=== PATIENT | male | born 1980 | race African-American/Black ===

== ENCOUNTER 2020-05-01 11:57 | Emergency (ER) | payer BC, OTHER ==
--- OUTSIDE RECORDS SUMMARY | 2020-05-01 12:01 | XMS REPORT | Continuity of Care Document ---
:1980 Author Organization [facility] t Address [address] [place] [address] Care Team Providers Name Role Phone William Brizuela Attending Clinician Katie BENTON Attending Clinician Payers Payer Name Policy Type Policy Number Effective Date Expiration Date S ource Problems Condition Condition Condition Status Onset Resolution Last Treating Co mments Source Name Details Category Date Date Treatment Clinician Date Benign Benign Problem Active [facility] essential essential Luke s - hypertensi hypertensi Me moria on on l [facility] ent Clinics Iron Iron Problem Active [facility] deficiency deficiency Sangeetha kes - Memoria l [facility] Clinics BMI BMI Problem Active [facility] 45.0-49.9, 45.0-49.9, Sangeetha sanchezs - adult adult Memoria [facility] ent Clinics Body mass Body mass Problem Active [facility] index index [facility] - (BMI) of (BMI) of Memori a 40.1 to 40.1 to l 44.9 in 44.9 in [facility] adult adult ent Clinics Vitamin D Vitamin D Problem Active [facility] deficiency deficiency Sangeetha kes - Memoria l [facility]ics Fatigue, Fatigue, Problem Active [facility] unspecifie unspecifie Sangeetha kes - d type d type Memoria l [facility] Clinics Tendonitis Tendonitis Problem Active [facility] - [facility] l [facility] Prediabete Prediabete Problem Active [facility] s [facility] - Memoria l [facility] ent [facility] Elbow pain Elbow pain Problem Active [facility] - Mem[facility] l [facility] Generalize Generalize Diagnosis Active [facility] d body d body Lukes - aches aches Memoria [facility] ent [facility] Fever and Fever and Diagnosis Active [facility] chills chills [facility]ukes - Memoria l [facility] ent [facility] Suspected Suspected Diagnosis Active [facility] COVID-19 COVID-19 Lukes - virus virus Memoria infection infection l [facility] ent [facility] Allergies, Adverse Reactions, Alerts Allergy Allergy Status Severity Reaction(s) Onset Inactive Treating Comm ents Source Name Type Date Date Clinician No Known DA Active U 2018-09 [facility] Allergie 0-01 Clear s 00:00: [place] 00 [facility] Medications Ordered Filled Start Stop Current Ordering Indication Dosage Frequency Signature Comments Components Source Medication Medication Date Date Medication? Clinician (SIG) Name Name Lisinopril- Lisinopril- Yes Eliel [address] [facility] Hydrochloro Hydrochloro Rivera [facility] - thiazide thiazide Memoria [facility] ent [facility] Phentermine Phentermine Yes Eliel [address] [facility] HCl HCl Rivera [facility] - Memoria l [facility] Cyanocobala Cyanocobala Yes Eliel [address] [facility] min min Rivera [facility] - Memoria l [facility] Duexis Duexis Yes Eliel 1 tablet [facility] Rivera [facility] - Mem[facility] Syringe Syringe Yes Eliel as [facility] Rivera directed Lukes - Memoria [facility] ent [facility] Immunizations Ordered Filled Immunization Date Status Comments Sour e Immunization Name Name TDAP > 7 TDAP > 7 2019-01-[address] [facility] - Years-Adacel Years-Adacel 00:00:00 [facility] Afluria Afluria 2019-01-[address] [facility] - 00[facility] Procedures This patient has no known procedures. Encounters Start End Encounter Admission Attending Care Care Encounter Source Date/Time Date/Time Type Type Clinicians Facility Department ID 2020-04-30 2020-04-30 Emergency Marietta Bailey [facility] [id number] 20:49:00 23:23:00 Nito Wilson [id number] [place] [id number] [place] [address] [id number] 2020-04-30 2020-04-30 [facility] [id number] [facility] 15:00:00 15:00:00 t [employer] [facility] Medicine Outpati ent Clinics 2020-04-26 2020-04-26 [facility] [id number] 09:41:00 09:41:00 t [facility] - [employer] [facility] Medicine Outpati ent Clinics 2020-04-26 2020-04-26 [facility] [id number] 08:15:00 08:15:00 t [employer] [facility] Medicine l Medicine Outpati ent Clinics 2020-03-29 2020-03-29 [facility] [id number] [address] 08:15:00 08:15:00 t [employer] [facility] Medicine Outpati ent Clinics 2020-03-15 2020-03-15 [facility] [id number] 13:30:00 13:30:00 t [employer] [facility] Medicine l Medicine Outpati ent Clinics 2019-12-22 2019-12-22 [facility] [id number] 16:58:00 16:58:00 t [employer] [facility] Medicine Outpati ent Clinics 2019-03-11 2019-03-11 [facility] [id number] 08:00:00 08:00:00 t Ray [employer] s - [employer] [facility] Medicine Outpati ent Clinics 2019-01-07 2019-01-07 [facility] [id number] 08:15:00 08:15:00 t [employer] - [facility] Medicine Outpati ent Clinics 2018-10-06 2018-10-06 [facility] [id number] 14:49:00 14:49:00 t [facility] [employer] - [employer] [facility] Medicine Outpati ent Clinics 2018-06-09 2018-06-09 [facility] [id number] [address] 10:21:00 10:21:00 t Ray [employer] s - [employer] [facility] Medicine Outpati ent Clinics 2018-06-08 2018-06-08 [facility] [id number] 15:45:00 15:45:00 t Ray [employer] [facility] Medicine Outpati ent Clinics 2018-05-20 2018-05-20 [facility] [id number] 08:08:00 08:08:00 t Ray [employer] [facility] Medicine Outpati ent Clinics 2018-05-13 2018-05-13 [facility] [id number] 08:15:00 08:15:00 t Ray [employer] [facility] Medicine Outpati ent Clinics 2018-05-04 2018-05-04 [facility] [id number] 07:52:00 07:52:00 t [employer] [facility] Medicine Outpati ent Clinics 2018-04-12 2018-04-12 [facility] [id number] 08:30:00 08:30:00 t [employer] [facility] Medicine Outpati ent Clinics 2018-02-19 2018-02-19 [facility] [id number] 08:30:00 08:30:00 t [employer] [facility] Medicine Outpati ent Clinics 2018-01-29 2018-01-29 [facility] [id number] 08:45:00 08:45:00 t [employer] [facility] Medicine Outpati ent Clinics Results Test Description Test Time Test Comments Results Result Comments Source CHEMISTRY 8 PROFILE 2019-06-14 17:43:00 Test Item Value Reference Range Interpretation Comme nts ISTAT-SODIUM (test code = NAP) MMOL/L 134-147 ISTAT-POTASSIUM (test code = KP) MMOL/L 3.4-5.0 ISTAT-CHLORIDE (test code = CLP) MMOL/L 100-108 ISTAT CARBON DIOXIDE (test code = ISTAT-CO2) mmol/L 21-33 N ISTAT CALCIUM IONIZED (test code = ISTAT-SHELLY) MG/DL 1.12-1.3 2 ISTAT-GLUCOSE (test code = GLUP) MG/DL 70-110 N ISTAT-BUN (test code = BUNP) MG/DL 7-18 H BEDSIDE CREATININE (test code = CREATBED) MG/DL 0.6-1.3 N GLOMERULAR FILTRATION RATE POC (test code = GFRBED) 65 ML/MIN CHEMISTRY 8 [id number] 17:43:00 Test Item Value Reference Range Interpretation Comments ISTAT-SODIUM (test 140 MMOL/L 134-147 N code = NAP) ISTAT-POTASSIUM (test 4.2 MMOL/L 3.4-5.0 N code = KP) ISTAT-CHLORIDE (test 105 MMOL/L 100-108 N Perform ed by code = CLP) certified opera tor at [facility] ISTAT CARBON DIOXIDE 25.0 mmol/L 21-33 N (test code = ISTAT-CO2) ISTAT CALCIUM IONIZED 1.16 MG/DL 1.12-1.32 N (test code = ISTAT-SHELLY) ISTAT-GLUCOSE (test 74 MG/DL 70-110 N code = GLUP) ISTAT-BUN (test code = 19 MG/DL 7-18 H BUNP) BEDSIDE CREATININE 1.3 MG/DL 0.6-1.3 N (test code = CREATBED) GLOMERULAR FILTRATION 65 ML/MIN RATE POC (test code = GFRBED)
--- OUTSIDE RECORDS SUMMARY | 2020-05-01 12:01 | XMS REPORT ---
:1980 Author Organization eClinicalWorks Care Team Providers Name Role Phone RiveraEliel Provider Role Unavailable Allergies No Known Allergies Problems Problem Type Condition Code Onset Dates Condition Statu s Problem Iron deficiency E61.1 Active Problem BMI 45.0-49.9, adult Z68.42 Active Assessment Benign essential hypertension I10 Active Problem Body mass index (BMI) of 40.1 to Z68.41 Active 44.9 in adult Problem Vitamin D deficiency E55.9 Active Problem Fatigue, unspecified type R53.83 Ac tive Problem Tendonitis M77.9 Active Problem Benign essential hypertension I10 Active Problem Prediabetes R73.09 Active Problem Elbow pain M25.529 Active Medications Medication Code Code Instructions Start End Date Status Dosage System Date Lisinopril-Hyd [facility] 08255165602 20-12.5 MG Active 1 tablet rochlorothiazi Orally Once a de day Results No Known Results Summary Purpose eClinicalWorks Submission
--- OUTSIDE RECORDS SUMMARY | 2020-05-01 12:01 | XMS REPORT ---
:1980 Author Organization eClinical[employer] Care Team Providers Name Role Phone Eliel Rivera Provider Role Unavailable Allergies, Adverse Reactions, Alerts Substance Reaction Event Type N.K.D.A. Info Not Available Non Drug Allergy Problems Problem Type Condition Code Onset Dates Condition Statu s Problem Iron deficiency E61.1 Active Problem BMI 45.0-49.9, adult Z68.42 Active Problem Body mass index (BMI) of 40.1 to Z68.41 Active 44.9 in adult Problem Vitamin D deficiency E55.9 Active Problem Fatigue, unspecified type R53.83 Ac tive Problem Tendonitis M77.9 Active Problem Benign essential hypertension I10 Active Problem Prediabetes R73.09 Active Problem Elbow pain M25.529 Active Assessment Vitamin B12 deficiency E53.8 Activ e Assessment Dietary counseling and surveillance Z71.3 Active Assessment Prediabetes R73.09 Active Assessment Fatigue, unspecified type R53.83 Ac tive Assessment Iron deficiency E61.1 Active Assessment Body mass index (BMI) of 40.1 to Z68.41 Active 44.9 in adult Assessment Vitamin D deficiency E55.9 Active Assessment Benign essential hypertension I10 Active Medications Medication Code Code Instructions Start End Status Dosage System Date Date Duexis [facility] 62485854672 800-26.6 MG Active 1 tablet Orally Three times a day PRN Cyanocobalamin [facility] 19961548619 1000 MCG/ML Active 1 ml Intramuscular Injection every 2 weeks Syringe [facility] 01189099321 25G X 1 IM to be Active as used for B12 directed injections Lisinopril-Hydroc [facility] 97187318031 20-12.5 MG Active TAKE 1 hlorothiazide Orally Once a TABL ET BY day MOUTH EVERY DAY Phentermine HCl ND 76930173043 37.5 MG Orally Aug Activ e 1 capsule Once a day 2019 Results No Known Results Summary Purpose eClinicalWorks Submission
--- OUTSIDE RECORDS SUMMARY | 2020-05-01 12:01 | XMS REPORT | Summary of Care ---
:1980 Author Organization [facility] Address [address] [place] [address] Care Team Providers Name Role Phone Pcp, Does Not Have A Primary Care Provider Reason for Visit Reason Comments Other COVID testing Auth/Cert Status Reason Specialty Diagnoses / Referred By Referred To Procedures Contact Contact Emergency Medicine [facility] Em ergency Dept [address] [place] [address] Fax: Encounter Details Date Type Department Care Team Description 04/30/2020 Emergency ADC-Emergency Marietta Vázquez, PAC [address] [place], [place] [id number] Nonintractable headache, unspecified chr onicity pattern, unspecified headache type (Primary Dx); Department Nito Wilson, ASSOCIATE PROGRAMMER[address] [address] Fever, unspecified fever cause [address] [place], [place] [id number] Allergies No Known Allergiesdocumented as of this encounter (statuses as of 04/30/2020) Medications Medication Sig Dispensed Refills Start Date End Date Status LISINOPRIL ORAL Take by mouth. 0 Active butalbital-acetaminophen Take 1 tablet by 20 tablet 0 04/30/20 20 Active -caff 50-325-40 mg mouth every 4 tabletIndications: (four) hours as Nonintractable headache, needed for Pain unspecified chronicity (scale 4-6). pattern, unspecified headache type documented as of this encounter (statuses as of 04/30/2020) Active Problems No known active problemsdocumented as of this encounter (statuses as of 04/30/2020) Social History Tobacco Use Types Packs/Day Years Used Date Never Assessed Sex Assigned at Date Recorded Not on file COVID-19 Exposure Response Date Recorded In the last month, have you been in contact with No / Unsure 04/30/2020 9:08 PM CDT someone who was confirmed or suspected to have Coronavirus / COVID-19? documented as of this encounter Last Filed Vital Signs Vital Sign Reading Time Taken Comments Blood Pressure 142/83 04/30/2020 10:00 PM CDT Pulse 71 04/30/2020 10:00 PM CDT Temperature 37 C (98.6 F) 04/30/2020 9:06 PM CDT Respiratory Rate 18 04/30/2020 10:00 PM CDT Oxygen Saturation 96% 04/30/2020 10:00 PM CDT Inhaled Oxygen Concentration - - Weight 131.5 kg (290 lb) 04/30/2020 8:55 PM CDT Height - - Body Mass Index - - documented in this encounter Discharge Instructions InstructionsNito Wilson FNP - 04/30/2020DIAGNOSIS 1. Headache 2. Fever NO LIFE-THREATENING FINDINGS ON TODAY'S EXAM. PROCEDURES IN THE ER TODAY: none MEDICATIONS ADMINISTERED IN THE ER TODAY: Toradol 30 mg IV Reglan 10 mg IV Benadryl 25 mg IV IV fluids [facility] YOUR PRESCRIPTIONS AND CSNN-ANZ-SAMHHRT MEDICATION RECOMMENDATIONS: [facility] SPECIAL CARE INSTRUCTIONS: Drink plenty of clear fluids and take over the counter ibuprofen or prescription headache medicine as needed. Monitor your symptoms and if you are not getting better in a few days, follow up with your PCP for re-evaluation. If you develop new symptoms such as severe vomiting, worse headache, visual loss, or fever that doesn't improve with medicine, return to the ER. While waiting for your COVID test results, keep yourself in home isolation for 14 days from beginning of illness unless otherwise instructed by a healthcare provider or the health department. Return tothe ER if you become sicker or develops shortness of breath for re-evaluation. FOLLOW-UP RECOMMENDATIONS: RECOMMEND FOLLOW-UP WITH A PRIMARY CARE PROVIDER OR SPECIALIST IN 2-5 DAYS, ESPECIALLY IF NO IMPROVEMENT IN SYMPTOMS. TO FOLLOW-UP WITHIN THE [facility], TRY THESE OPTIONS (CLINIC APPOINTMENTS AVAILABLE ON [id number] BASIS): 1. SCHEDULE AN APPOINTMENT ONLINE AT [email or web address] 2. OR CALL THE [facility] AT OR 3. OR CALL YOUR [facility] PHYSICIAN'S OFFICE DIRECTLY IF YOU ARE ALREADY AN ESTABLISHED [facility] PATIENT. OR, YOU MAY FOLLOW-UP WITH A PROVIDER OF YOUR CHOICE, SUCH : 1. A PHYSICIAN OF YOUR CHOICE 2. [facility], . LOCATIONS IN [facility] 3. [facility], [address] [place], [place]; [phone] RETURN TO ER FOR WORSENING OF SYMPTOMS. AttachmentsThe following attachments cannot be sent through Care Everywhere. Headache, Unspecified (Vietnamese)documented in this encounter ED Notes Samuel Vargas RN - 04/30/2020 8:54 PM CDTPatient states, "I have been having headaches and fever for the past week and I think I may have covid." Reports taking tyenol and Motrin which helps with headache and fever but it comes right back. Symptoms started 6 days ago. Pmh: HTN documented in this encounter Miscellaneous Notes ED Nurse Note - Julien Carter RN - 04/30/2020 11:12 PM CDTPt given printed and verbal discharge instructions regarding headache, and covid handout, encouragedhydration, rest, quarantine per guidelines. Discussed Tylenol and ibuprofen use for pain/fever. Discussed [facility] side effects and to avoid driving/operating machinery/or engaging in activities requiring alertness while taking. Advised to seek medical attention for new/prolonged/worsening of symptoms. No adverse reaction to meds given in ER noted upon discharge. PIV d'cd, dressing to site, catheter in tact. Pt verbalized understanding of instructions, awake alert oriented, resp reg unlabored, skin w/d, color appropriate for race, moves all ext well, pt leaving amb with steady gait, in no apparent distress, documented in this encounter Plan of Treatment Name Type Priority Associated Diagnoses Date/Ti me CORONAVIRUS COVID-19 LAB STAT Nonintractable heada viktor, 04/30/2020 9:52 PM TESTING unspecified chronicity CDT pattern, unspecified headache type Fever, unspecified fever cause Name Type Priority Associated Diagnoses Order S chedule CORONAVIRUS COVID-19 LAB Routine Nonintractable heada viktor, ONCE for 1 Occurrences TESTING unspecified chronicity start ing 04/30/2020 pattern, unspecified until 0 04/30/2020 headache type Fever, unspecified fever cause Health Maintenance Due Date Last Done Comments Depression Screening 02/28/1992 DTaP,Tdap,and Td Vaccines (1 - 02/27/1999 Tdap) INFLUENZA VACCINE (#1) 2020 PNEUMOCOCCAL 0-64 YEARS COMBINED Aged Out No longer eligible based on SERIES patient's age to complete this topic documented as of this encounter Procedures Procedure Name Priority Date/Time Associated Diagnosis Comme nts NOTICE OF PRIVACY Routine 04/30/2020 8:46 PM CDT PRACTICES CONSENT/REFUSAL FOR Routine 04/30/2020 8:46 PM CDT DIAGNOSIS AND TREATMENT documented in this encounter Results Not on filedocumented in this encounter Visit Diagnoses Diagnosis Nonintractable headache, unspecified chr onicity pattern, unspecified headache type - Primary Fever, unspecified fever cause documented in this encounter Administered Medications Medication Order MAR Action Action Date Dose Rate Site [id number]-[id number]-xxob Given 04/30/2020 10:28 PM CDT 1 ta blet (ESGIC) 50-325-40 mg tablet 1 tablet 1 tablet, Oral, ONCE, 1 dose, Thu04/30/20 at 2330, MEI diphenhydrAMINE (BENADRYL) injection 25 mg Given 04/30/2020 9:45 PM CDT 25 mg 25 mg, Slow IV Push, ONCE, 1 dose, Thu04/30/20 at 2230, STAT ketorolac (TORADOL) injection 30 mg Given 04/30/2020 9:48 PM CDT 30 mg 30 mg, Slow IV Push, ONCE, 1 dose, Thu04/30/20 at 2230, MEI, service member approving Restricted medication: MARIETTA VÁZQUEZ metoclopramide HCl (REGLAN) injection 10 mg Given 04/30/2020 9:48 PM CDT 10 mg 10 mg, Slow IV Push, ONCE, 1 dose, 04/30/20 at 2230, MEI NaCl 0.9% (NS) bolus infusion New Bag 04/30/2020 9:45 PM CDT 1,000 mL 999 mL/hr 1,000 mL at 999 mL/hr, 1,000 mL, IV Infusion, ONCE, 1 dose, 04/30/20 at 2230, STAT documented in this encounter Additional Health Concerns Infection Onset Date Last Indicated Resolved Time COVID-19 Rule Out 04/30/2020 04/30/2020 documented as of this encounter Insurance Payer Benefit Plan Subscriber ID Effective Dates Phone Address Type / Group [facility] [id number] 2017-[place]erry [phone] [address] [place] PPO/[place] - OUT OF t [id number] [place] [address] ([place]) [place] [address] documented as of this encounter
--- OUTSIDE RECORDS SUMMARY | 2020-05-01 12:01 | XMS REPORT ---
:1980 Author Organization eClinicalWorks Care Team Providers Name Role Phone MiguelEliel Provider Role Unavailable Allergies No Known Allergies Problems Problem Type Condition Code Onset Dates Condition Statu s Problem Iron deficiency E61.1 Active Problem BMI 45.0-49.9, adult Z68.42 Active Assessment Generalized body aches R52 Activ e Assessment Fever and chills R50.9 Active Assessment Suspected COVID-19 virus infection Z20.828 Active Problem Body mass index (BMI) of 40.1 to Z68.41 Active 44.9 in adult Problem Vitamin D deficiency E55.9 Active Problem Fatigue, unspecified type R53.83 Ac tive Problem Tendonitis M77.9 Active Problem Benign essential hypertension I10 Active Problem Prediabetes R73.09 Active Problem Elbow pain M25.529 Active Medications Medication Code Code Instructions Start End Status Dosage System Date Date Phentermine HCl [facility] 31297365373 37.5 MG Orally Activ e 1 capsule Once a day Cyanocobalamin [facility] 22491566770 1000 MCG/ML Active 1 ml Intramuscular Injection every 2 weeks Duexis [facility] 84500601726 800-26.6 MG Active 1 tablet Orally Three times a day PRN Lisinopril-Hydroc [facility] 44343257999 20-12.5 MG Active 1 tablet hlorothiazide Orally Once a day Syringe [facility] 34488911674 25G X 1 IM to be Active as used for B12 directed injections Results Name Result Date Reference Range Unit Abnormali ty Flag FLU TEST A/B ----A Negative 20200430 ----B Negative [id number] Summary Purpose eClinicalWorks Submission
--- OUTSIDE RECORDS SUMMARY | 2020-05-01 12:01 | XMS REPORT ---
:1980 Author Organization eClinicalWorks Care Team Providers Name Role Phone Miguel Eliel Provider Role Unavailable Allergies No Known Allergies [...] Start End Status Dosage System Date Date Cyanocobalamin [facility] 94691452879 1000 MCG/ML Active 1 ml Intramuscular Injection every 2 weeks Syringe [facility] 37306538723 25G X 1 IM to be Active as used for B12 directed injections Duexis [facility] 28758178915 800-26.6 MG Active 1 tablet Orally Three times a day PRN Phentermine HCl ND 87633907861 37.5 MG Orally Activ e 1 capsule Once a day Lisinopril-Hydroc [facility] 13127575977 20-12.5 MG Active TAKE 1 hlorothiazide Orally Once a TABL ET BY day MOUTH EVERY DAY Results No Known Results Summary Purpose eClinicalWorks Submission
--- OUTSIDE RECORDS SUMMARY | 2020-05-01 12:01 | XMS REPORT ---
[...] Active Problem Elbow pain M25.529 Active Assessment Dietary counseling and surveillance Z71.3 Active Assessment Iron deficiency E61.1 Active Assessment Vitamin B12 deficiency E53.8 Activ e Assessment Fatigue, unspecified type R53.83 Ac tive Assessment Benign essential hypertension I10 Active Assessment Vitamin D deficiency E55.9 Active Assessment Body mass index (BMI) of 40.1 to Z68.41 Active 44.9 in adult Assessment Prediabetes R73.09 Active Assessment Well adult on routine health check Z00.00 Active Medications Medication Code Code Instructions Start End Status Dosage System Date Date Syringe [facility] 43953258458 25G X 1 IM to be May 20, Active as used for B12 2018 directed injections Phentermine HCl ND 23515556061 37.5 MG Orally Activ e 1 capsule Once a day Cyanocobalamin ND 43070822130 1000 MCG/ML Active 1 ml Intramuscular Injection every 2 weeks Lisinopril-Hydroc ND 37833574132 20-12.5 MG Active TAKE 1 hlorothiazide Orally Once a TABL ET BY day MOUTH EVERY DAY Duexis ND 81192326033 800-26.6 MG Active 1 tablet Orally Three times a day PRN Results No Known Results Summary Purpose eClinicalWorks Submission
--- NOTE | 2020-05-01 12:52 | RAD REPORT ---
EXAM DESCRIPTION: CT - Head Brain Wo Cont - 05/01/2020 12:43 pm CLINICAL HISTORY: Headache COMPARISON: None. TECHNIQUE: Computed axial tomography of the head was obtained. IV contrast was not requested. All CT scans are performed using dose optimization technique as appropriate and may include automated exposure control or mA/KV adjustment according to patient size. FINDINGS: An intracranial bleed is not seen . The ventricles are normal in caliber. No extra-axial fluid collection is noted. Fluid within the sinuses/ mastoids is not seen. IMPRESSION: No acute intracranial abnormality is seen. If patient's symptoms persist MRI of the bra in would be recommended.
[2020-05-01 13:00] LABS: Absolute Lymphocytes (CBC) 2.5 K/uL (0.7-4.9); Basophils % 0.3 % (0-1.3); Hematocrit 39.3 % (39.6-49.0); Lymphocytes % 54.1 % (15.3-44.8); MPV 7.9 fL (7.6-11.3); RBC Red Blood Cell Count 5.33 M/uL (4.33-5.43)
[2020-05-01 13:14] LABS: BUN Blood Urea Nitrogen 12 mg/dL (7-18); Bicarbonate 31 mmol/L (21-32); Glucose Level 92 mg/dL (74-106); Potassium 4.1 mmol/L (3.5-5.1); Sodium Level 139 mmol/L (136-145)
[2020-05-01] MEDS ORDERED: LIDOCAINE 1% MPF 5 ML VIAL ONE ×2 (16:06→16:40)
--- NOTE | 2020-05-01 16:51 | ER ---
Nurse's Notes [facility] Name: Perry Baig Age: 40 yrs Sex: Male : 1980 Arrival Date: 05/01/2020 Time: 12:02 Bed 25 Private MD: Diagnosis: Headache;Fever, unspecified Presentation: 05/01 12:10 Chief complaint: Patient states: fever and migraines since last week, fever was up to ca1 103 two days ago, has been taking tylenol and ibuprofen, has been swabbed for COVID on Thursday and yesterday at [facility] , results pending, saw Dr. Miguel khan on Thursday, wanted him to have blood work and CT , flu swab was negative yesterday , pt denies cough or SOB, c/o frontal headache and pressure , no hx of headaches. Coronavirus screen: fever, headache, Client presents with at least one sign or symptom that may indicate coronavirus-19. Standard/surgical mask placed on the client. Provider contacted for isolation considerations. The client indicates previous COVID test results are pending. Ebola Screen: Patient negative for fever greater than or equal to 101.5 degrees Fahrenheit, and additional compatible Ebola Virus Disease symptoms Patient denies exposure to infectious person. Patient denies travel to an Ebola-affected area in the 21 days before illness onset. No symptoms or risks identified at this time. Initial Sepsis Screen: Does the patient meet any 2 criteria? No. Patient's initial sepsis screen is negative. Does the patient have a suspected source of infection? No. Patient's initial sepsis screen is negative. Risk Assessment: Do you want to hurt yourself or someone else? Patient reports no desire to harm self or others. Onset of symptoms was April 24, 2020. 12:10 Method Of Arrival: Ambulatory ca1 12:10 Acuity: LAUREN 3 ca1 Triage Assessment: 12:58 Headache History: Denies prior headaches. jd3 12:59 Pain: Pain at worst was 10 out of 10 on a pain scale. Pain began gradually, Also jd3 complains of no other associated symptoms. Historical: - Allergies: 12:15 No Known Allergies; ca1 - Home Meds: 12:15 lisinopril 5 mg Oral tab 1 tab once daily [Active]; ca1 - PMHx: 12:15 Hypertension; ca1 - PSHx: 12:15 None; ca1 - Immunization history:: Adult Immunizations not up to date. - Social history:: Smoking status: Patient denies any tobacco usage or history of. Screenin:58 Abuse screen: Denies threats or abuse. Nutritional screening: No deficits noted. jd3 Tuberculosis screening: No symptoms or risk factors identified. Fall Risk Ambulatory Aid- None/Bed Rest/Nurse Assist (0 pts). Gait- Normal/Bed Rest/Wheelchair (0 pts) Mental Status- Oriented to own ability (0 pts). Total Boss Fall Scale indicates No Risk (0-24 pts). Assessment: 12:56 General: Appears in no apparent distress. uncomfortable, Behavior is calm, cooperative, jd3 appropriate for age. Pain: Complains of pain in head Quality of pain is described as aching, pressure. Neuro: Level of Consciousness is awake, alert, obeys commands, Oriented to person, place, time, situation, Reports headache Denies weakness blurred vision dizziness. Cardiovascular: Denies chest pain, Capillary refill < 3 seconds Patient's skin is warm and dry. Respiratory: Airway is patent Respiratory effort is even, unlabored, Respiratory pattern is regular, symmetrical, Denies cough, shortness of breath. GI: No signs and/or symptoms were reported involving the gastrointestinal system. Patient currently denies abdominal pain, diarrhea, nausea, vomiting. : No signs and/or symptoms were reported regarding the genitourinary system. EENT: No signs and/or symptoms were reported regarding the EENT system. Derm: Skin is intact, Skin is dry, Skin is normal, Skin temperature is warm. Musculoskeletal: Circulation, motion, and sensation intact. Range of motion: intact in all extremities. 13:23 Reassessment: Patient appears in no apparent distress at this time. No changes from jd3 previously documented assessment. Patient and/or family updated on plan of care and expected duration. Pain level reassessed. Patient is alert, oriented x 3, equal unlabored respirations, skin warm/dry/pink. 14:58 Reassessment: Patient appears in no apparent distress at this time. Patient and/or jd3 family updated on plan of care and expected duration. Pain level reassessed. Patient is alert, oriented x 3, equal unlabored respirations, skin warm/dry/pink. awaiting disposition. 16:06 Reassessment: Patient appears in no apparent distress at this time. No changes from jd3 previously documented assessment. Patient and/or family updated on plan of care and expected duration. Pain level reassessed. Patient is alert, oriented x 3, equal unlabored respirations, skin warm/dry/pink. 17:07 Reassessment: Patient appears in no apparent distress at this time. Patient and/or jd3 family updated on plan of care and expected duration. Pain level reassessed. Patient is alert, oriented x 3, equal unlabored respirations, skin warm/dry/pink. hospitalist at bedside. 18:32 Reassessment: Patient appears in no apparent distress at this time. Patient and/or jd3 family updated on plan of care and expected duration. Pain level reassessed. Patient is alert, oriented x 3, equal unlabored respirations, skin warm/dry/pink. reported understanding of discharge instructions. even and steady gait upon discharge. Vital Signs: 12:10 BP 127 / 74; Pulse 78; Resp 16; Temp 99.2; Pulse Ox 96% on R/A; Weight 136.08 kg; ca1 Height 5 ft. 10 in. (177.80 cm); Pain 7/10; 13:23 BP 133 / 79; Pulse 73; Resp 17 S; Pulse Ox 97% on R/A; jd3 14:58 BP 131 / 88; Pulse 71; Resp 17 S; Pulse Ox 99% on R/A; jd3 16:06 BP 136 / 82; Pulse 67; Resp 17 S; Pulse Ox 99% on R/A; jd3 17:08 BP 119 / 61; Pulse 70; Resp 16 S; Pulse Ox 99% on R/A; jd3 18:29 BP 128 / 63; Pulse 78; Resp 16 S; Temp 101.6(O); Pulse Ox 100% on R/A; jd3 12:10 Body Mass Index 43.05 (136.08 kg, 177.80 cm) ca1 ED Course: 12:02 Patient arrived in ED. as 12:14 Triage completed. ca1 12:15 Arm band placed on. ca1 12:17 Andres Howell NP is PHCP. pm1 12:17 Valente Paniagua MD is Attending Physician. pm1 12:27 Jose Chan RN is Primary Nurse. jd3 12:44 CT Head Brain wo Cont In Process Unspecified. EDMS 12:56 Inserted saline lock: 20 gauge in left antecubital area, using aseptic technique. Blood jd3 collected. 12:57 Patient has correct armband on for positive identification. Placed in gown. Bed in low jd3 position. Call light in reach. Side rails up X 1. Pulse ox on. NIBP on. 15:15 Consent for a lumbar puncture explained by physician, signed by patient. jd3 15:50 Assist provider with lumbar puncture: Set up LP tray. Performed by Andres diazd3 Procedure unsuccessful. Patient tolerated well. pt resting in room. Lynda BUNN and Arcelia KRAMER unable to complete procedure. 16:51 Geraldo Keyes DO is Hospitalizing Provider. pm1 17:56 Elvis Limon MD is Referral Physician. pm1 18:33 IV discontinued, intact, bleeding controlled, No redness/swelling at site. Pressure jd3 dressing applied. Administered Medications: 17:37 Drug: morphine 4 mg Route: IVP; Site: left antecubital; jd3 18:31 Follow up: Response: No adverse reaction; RASS: Alert and Calm (0) jd3 18:30 Drug: Tylenol 1000 mg Route: PO; jd3 18:31 Follow up: Response: Medication administered at discharge. jd3 Outcome: 16:51 Decision to Hospitalize by Provider. pm1 17:56 Discharge ordered by . pm1 18:32 Discharged to home ambulatory, with family. jd3 18:32 Condition: stable 18:32 Discharge instructions given to patient, Instructed on discharge instructions, follow up and referral plans. Demonstrated understanding of instructions, follow-up care. 18:33 Patient left the ED. jd3 Signatures: Dispatcher [employer] EDMS Funmilayo Valente Irene, RN RN iw Andres Howell NP MECHANICAL RELIABILITY ENGINEER pm1 Jose Chan RN RN jd3 Heide Menjivar RN RN ca1 Corrections: (The following items were deleted from the chart) 16:43 16:42 Assist provider with lumbar puncture: Set up LP tray. Performed by Andres Howell NP Procedure unsuccessful. Patient tolerated well. pt resting in room. Lynda BUNN and Arcelia KRAMER unable to complete procedure. jd3 18:32 17:45 Reassessment: best
--- NOTE | 2020-05-01 16:51 | EDPHYS ---
Physician Documentation [facility] Name: Perry Baig Age: 40 yrs Sex: Male : 1980 Arrival Date: 05/01/2020 Time: 12:02 Bed 25 Private MD: ED Physician Valente Paniagua HPI: 05/01 12:29 This 40 yrs old Black Male presents to ER via Ambulatory with complaints of Fever, pm1 Headache. 12:29 The patient reports fever, that was measured at 103 degrees Fahrenheit. Onset: The pm1 symptoms/episode began/occurred 1 week(s) ago. Modifying factors: there are no obvious modifying factors. Associated signs and symptoms: Pertinent positives: headache, Pertinent negatives: abdominal pain, cough, earache, sore throat. Severity of symptoms: in the emergency department the symptoms have improved with antipyretic. The patient has not experienced similar symptoms in the past. The patient has been recently seen by a physician: the patient's primary care provider, Dr. Rivera and [facility] ER Yesterday. Has had negative flu swab and 3 pending covid tests. Historical: - Allergies: 12:15 No Known Allergies; ca1 - Home Meds: 12:15 lisinopril 5 mg Oral tab 1 tab once daily [Active]; ca1 - PMHx: 12:15 Hypertension; ca1 - PSHx: 12:15 None; ca1 - Immunization history:: Adult Immunizations not up to date. - Social history:: Smoking status: Patient denies any tobacco usage or history of. ROS: 12:29 Eyes: Negative for injury, pain, redness, and discharge, ENT: Negative for injury, pm1 pain, and discharge, Neck: Negative for injury, pain, and swelling, Cardiovascular: Negative for chest pain, palpitations, and edema, Respiratory: Negative for shortness of breath, cough, wheezing, and pleuritic chest pain, Abdomen/GI: Negative for abdominal pain, nausea, vomiting, diarrhea, and constipation, Back: Negative for injury and pain, : Negative for injury, bleeding, discharge, and swelling, MS/Extremity: Negative for injury and deformity, Skin: Negative for injury, rash, and discoloration. 12:29 Constitutional: Positive for fever, Negative for poor PO intake. 12:29 Neuro: Positive for headache, Negative for numbness, tingling, weakness. Exam: 12:29 Constitutional: This is a well developed, well nourished patient who is awake, alert, pm1 and in no acute distress. Head/Face: Normocephalic, atraumatic. ENT: Nares patent. No nasal discharge, no septal abnormalities noted. Tympanic membranes are normal and external auditory canals are clear. Oropharynx with no redness, swelling, or masses, exudates, or evidence of obstruction, uvula midline. Mucous membranes moist. Neck: Trachea midline, no thyromegaly or masses palpated, and no cervical lymphadenopathy. Supple, full range of motion without nuchal rigidity, or vertebral point tenderness. No Meningismus. 12:29 Back: No spinal tenderness. No costovertebral tenderness. Full range of motion. Skin: Warm, dry with normal turgor. Normal color with no rashes, no lesions, and no evidence of cellulitis. MS/ Extremity: Pulses equal, no cyanosis. Neurovascular intact. Full, normal range of motion. 12:29 Cardiovascular: Exam negative for acute changes, Rate: normal, Rhythm: regular, Pulses: no pulse deficits are appreciated. 12:29 Respiratory: Exam negative for acute changes, respiratory distress, shortness of breath. 12:29 Neuro: Orientation: is normal, Mentation: is normal, Motor: moves all fours, strength is normal, strength is 5/5 in all extremities. Vital Signs: 12:10 BP 127 / 74; Pulse 78; Resp 16; Temp 99.2; Pulse Ox 96% on R/A; Weight 136.08 kg; ca1 Height 5 ft. 10 in. (177.80 cm); Pain 7/10; 13:23 BP 133 / 79; Pulse 73; Resp 17 S; Pulse Ox 97% on R/A; jd3 14:58 BP 131 / 88; Pulse 71; Resp 17 S; Pulse Ox 99% on R/A; jd3 16:06 BP 136 / 82; Pulse 67; Resp 17 S; Pulse Ox 99% on R/A; jd3 17:08 BP 119 / 61; Pulse 70; Resp 16 S; Pulse Ox 99% on R/A; jd3 18:29 BP 128 / 63; Pulse 78; Resp 16 S; Temp 101.6(O); Pulse Ox 100% on R/A; jd3 12:10 Body Mass Index 43.05 (136.08 kg, 177.80 cm) ca1 MDM: 12:20 Patient medically screened. pm1 12:25 ED course: Patient refused pain medications. pm1 16:47 Data reviewed: vital signs. Data interpreted: Pulse oximetry: on room air is 99 %. pm1 Interpretation: normal. 16:49 Counseling: I had a detailed discussion with the patient and/or guardian regarding: the pm1 historical points, exam findings, and any diagnostic results supporting the discharge/admit diagnosis, lab results, radiology results, the need for further work-up and treatment in the hospital. 16:49 Differential diagnosis: viral Infection, bacterial infection, meningitis, covid, flu, pm1 strep. 17:52 ED course: Dr. Keyes consulted with Dr. Limon and Dr. Rivera. After discussing the pm1 case with Dr. Limon, Dr. Keyes decided that the patient does not require admission and can be discharged home to follow up with Dr. Limon. Patient educated on return precautions. 05/01 12:25 Order name: CBC with Diff; Complete Time: 13:03 pm1 05/01 12:25 Order name: BMP; Complete Time: 13:23 pm1 05/01 13:03 Order name: Strep; Complete Time: 13:48 pm1 05/01 13:45 Order name: Throat Culture [facility] 05/01 16:49 Order name: Procalcitonin 05/01 16:49 Order name: CRP; Complete Time: 18:20 05/01 12:25 Order name: CT Head Brain wo Cont; Complete Time: 13:01 pm1 05/01 12:25 Order name: IV Saline Lock; Complete Time: 12:56 pm1 05/01 16:49 Order name: Ferritin; Complete Time: 18:20 rn 05/01 16:49 Order name: Lactate; Complete Time: 18:20 rn 05/01 15:09 Order name: Lumbar Puncture Consent; Complete Time: 16:03 pm1 05/01 15:09 Order name: Lumbar Puncture Setup; Complete Time: 16:03 pm1 Administered Medications: 17:37 Drug: morphine 4 mg Route: IVP; Site: left antecubital; jd3 18:31 Follow up: Response: No adverse reaction; RASS: Alert and Calm (0) jd3 18:30 Drug: Tylenol 1000 mg Route: PO; jd3 18:31 Follow up: Response: Medication administered at discharge. jd3 Disposition: 18:54 Co-signature as Attending Physician, Valente Painagua MD. rn Disposition: 05/01/20 17:56 Discharged to Home. Impression: Headache, Fever, unspecified. - Condition is Stable. - Discharge Instructions: Fever, Adult, General Headache Without Cause, COVID-19. - Medication Reconciliation Form, Thank You Letter, Antibiotic Education, Prescription Opioid Use form. - Follow up: Emergency Department; When: As needed; Reason: Worsening of condition. Follow up: Elvis Limon MD; When: 2 - 3 days; Reason: Recheck today's complaints, Continuance of care, Re-evaluation by your physician. - Problem is new. - Symptoms have improved. Signatures: Dispatcher [employer] EDMS Valente Paniagua MD MD rn Marinas, Patrick, FITTING ROOM SUPERVISOR FITTING ROOM SUPERVISOR pm1 Jose Chan RN RN jd3 Acob, Cheryl RN ROGERIO ca1 Corrections: (The following items were deleted from the chart) 17:50 16:49 BLOOD CULTURE*+BA.LAB.BRZ ordered. EDMS EDMS 17:50 16:59 CORONAVIRUS+MR.LAB.BRZ ordered. EDSC EDMS 17:55 16:51 Hospitalization Ordered by Geraldo Keyes DO for Observation. Preliminary pm1 diagnosis is Fever, unspecified; Headache; Rule out meningitis. Bed requested for Telemetry/MedSurg (observation). Status is Observation. Condition is Stable. Problem is new. Symptoms have improved. pm1 18:33 17:56 05/01/2020 17:56 Discharged to Home. Impression: Headache; Fever, unspecified. jd3 Condition is Stable. Forms are Medication Reconciliation Form, Thank You Letter, Antibiotic Education, Prescription Opioid Use. Follow up: Emergency Department; When: As needed; Reason: Worsening of condition. Follow up: Elvis Limon; When: 2 - 3 days; Reason: Recheck today's complaints, Continuance of care, Re-evaluation by your physician. Problem is new. Symptoms have improved. pm1
[2020-05-01] MEDS ORDERED: MORPHINE 4 MG/ML SYR ONE (17:02)
--- NOTE | 2020-05-01 18:06 | P.CNS ---
Date of Consult: 05/01/20 Reason for Consult: Evaluate for possible admission Requesting Physician: Valente Paniagua Primary Care Provider: Dr. Rivera Chief Complaint: Fever, headache History of Present Illness: 40-year-old male with history of hypertension. Patient presented to emergency room with fever and headache. Over the past week patient has had headache and fever. He had been seen twice at 2 different clinics 1 with [facility] in the other at [facility] ER. Both tested him for COVID. Results pending. Patient denied any significant nausea, vomiting. Headache is band like sensation. He feels like his head is exploding. He rates the pain about a 10/10. No nuchal rigidity. No visual loss or problems. No significant nausea or vomiting noted. Patient had influenza test yesterday which was unremarkable. Patient came to the ER for further evaluation. In the ER vital signs stable. CBC unremarkable. BMP unremarkable. CT head unremarkable. Chest x-ray unremarkable. Strep test negative. Due to his symptoms the patient had a lumbar tap. This was tried twice without success. I was asked to evaluate the patient for possible admission.. Home medications list reviewed: Yes - Past Medical/Surgical History Diabetic: No -: Hypertension Past Surgical History: Patient denies surgical history Psychosocial/ Personal History: Patient is - Family History Father Family History: Reviewed- Non-Contributory - Social History Smoking Status: Never smoker Alcohol use: Yes CD- Drugs: No Caffeine use: Yes Review of Systems General: As per HPI Eyes: Unremarkable ENT: Unremarkable Respiratory: Unremarkable Cardiovascular: Unremarkable Gastrointestinal: Unremarkable Genitourinary: Unremarkable Musculoskeletal: Unremarkable Integumentary: Unremarkable Neurological: As per HPI Lymphatics: Unremarkable Physical Examination General: Alert, In no apparent distress, Oriented x3, Cooperative HEENT: Atraumatic Neck: Supple Respiratory: Clear to auscultation bilaterally, Normal air movement Cardiovascular: Normal pulses, Regular rate/rhythm Gastrointestinal: Normal bowel sounds Neurological: Normal speech, Normal strength at 5/5 x4 extr, Normal tone, Normal affect Laboratory Data (last 24 hrs) 05/01/20 12:52: Sodium 139, Potassium 4.1, BUN 12, Creatinine 0.91, Glucose 92 05/01/20 12:52: WBC 4.6, Hgb 13.0 L, Hct 39.3 L, Plt Count 163 Conclusions/Impression: Impression: Fever, headache suspect COVID 19 infection verses viral Hypertension Plan: Patient was evaluated emergency room. Case discussed with Neurology. Neurology felt this was not bacterial meningitis. At the very least this is probably a viral infection. No need for admission at this time. Will obtain CRP, ferritin and pro calcitonin. If abnormal patient may require prednisone at discharge. Neurology would be happy to see patient within the next 2 days. I was able to get in contact with his PCP who will understands the plan of care. Also discuss the case with who was on the phone. All are in agreement. Patient may continue with Tylenol alternating with ibuprofen for fever. Encourage oral intake. If headaches persist as an outpatient patient may require MRI. Case also discussed with ER who also agrees with plan of care. If there is any changes in his care after discharge patient may return back. Time Spent Managing Pts care (In Minutes): 55
[2020-05-01 18:13] LABS: C-Reactive Protein 79.5 mg/L (<3.00); Ferritin 1187.5 ng/mL (26-388)
[2020-05-01] MEDS ORDERED: ACETAMINOPHEN 500 MG TAB ONE (18:38)
[2020-05-01 20:01] VITALS: BP 128/63; TEMP 101.6; O2SAT 100
== END 2020-05-01 18:33 | disposition home or self-care (01) ==
LOC: ER 11:57
PROC: 009U3ZX Drainage of Spinal Canal, Percutaneous Approach, Diagnostic (ICD-10-PCS; principal; 2020-05-01)
DX: R51 Headache (principal); I10 Essential (primary) hypertension
CPT/HCPCS: 36415; 62270; 70450; 80048; 82728; 83605; 84145; 85025; 86140; 87070; 87081; 96374; 99285